=== PATIENT | female | born 1980 | race Caucasian/White ===

== ENCOUNTER 2017-02-25 18:46 | Emergency (ER) | payer MEDICAID ==
[~2017-02-25 18:46] MED LIST: CYMBALTA30 MG PO; DARVOCET-N 1001 TAB PO; DIAZEPAM10 MG; DIAZEPAM10 MG PO; KEFLEX500 MG PO; NO HOME MEDS; NORCO 7.5/325 T1 TAB PO; OXYCODONE/APAP PO; SYNTHROID50 MCG PO; VALIUM10 MG PO; VICODIN 5/500 T1 TAB PO; ZOLOFT50 MG
== END 2017-02-25 21:02 | disposition left against medical advice (07) ==
LOC: EDMED 18:46
DX: R52 Pain, unspecified (principal); Z53.29 Procedure and treatment not carried out because of patient's decision for other reasons